=== PATIENT | female | born 1990 | race Asian ===

== ENCOUNTER 2016-10-04 23:08 | Emergency (ER) | payer MEDICAID ==
[~2016-10-04] VITALS: Ht 149.9 cm; Wt 64.5 kg
[~2016-10-04 23:08] MED LIST: IRON325 MG PO; PRENATAL PO
[2016-10-04 23:13] VITALS: BP 132/83
[2016-10-04] MEDS ORDERED: DEPO-PROVER150 MG/M1 IM (23:17)
[2016-10-04] MEDS ORDERED: PROVENTIL0.09 MG/A1 IH (23:18)
[2016-10-05] MEDS ORDERED: ZITHROMAX Z PA250 MG PO (00:31)
[2016-10-05 00:40] VITALS: PULSE 73; TEMP 98.1
== END 2016-10-05 00:41 | disposition home or self-care (01) ==
LOC: COL.ER 23:08
DX: R05 Cough (principal)